=== PATIENT | female | born 1990 | race African-American/Black ===

== ENCOUNTER 2023-09-07 11:37 | Emergency (ER) | payer OTHER, SELFPAY ==
[2023-09-07 11:52] VITALS: BP 118/67; PULSE 60; RESP 16; TEMP 36.7; O2SAT 100
--- NOTE | 2023-09-07 12:04 | ED.SKABFB ---
HPI - Skin/Abscess/Foreign Bdy General Chief complaint: Skin/Abscess/Foreign Body Stated complaint: Bump On Buttocks Time Seen by Provider: 09/07/23 12:03 Source: patient and RN notes reviewed Mode of arrival: ambulatory Limitations: dementia History of Present Illness HPI narrative: 33-year-old female presents concern for a bump on her right buttock it has been there for 3 weeks. Reports up until 2 days ago was not painful. Reports 2 days ago became painful and was draining purulent drainage in the beginning, it was now draining pain drainage. She denies fever, aches, chills, sweats. MD complaint: abscess/boil and other (Redness) Related Data Home Medications Medication Instructions Recorded Confirmed drospirenone (contraceptive) 4 mg 1 tablet PO DAILY 09/07/23 09/07/23 (28) tablet (Slynd) Allergies Allergy/AdvReac Type Severity Reaction Status Date / Time No Known Allergies Allergy Verified 09/07/23 11:56 Review of Systems Review of Systems: CONSTITUTIONAL: Denies malaise, chills, sweats, or fever. EYES: Denies redness, or discharge. ENT: Denies rhinorrhea, congestion, swollen lips, swollen tongue CARDIOVASCULAR: Denies chest pain, palpitations, or edema. RESPIRATORY: Denies cough or dyspnea. GASTROINTESTINAL: Denies abdominal pain, nausea, vomiting SKIN: Reports painful bump on the right buttock that is draining. Denies vesicles, bullae, numbness, pain beyond proportion MUSCULOSKELETAL: Denies joint pain or myalgia. NEUROLOGIC: Denies headache. All systems reviewed & are unremarkable except as noted in HPI and below PMFSH Comments At time of signature, agree with nursing past medical, surgical, social and family history. There is no relevant family history pertinent to the presenting complaint Exam Narrative: GENERAL: Well-appearing, well-nourished, and in no acute distress. HEAD: Normocephalic, atraumatic. EYES: PERRLA, conjunctivae clear ENT: Mucous membranes moist. NECK: Supple. No lymphadenopathy CHEST: Clear to auscultation. No respiratory distress. HEART: Regular rate and rhythm. SKIN: Warm, dry. 3cm Flat area of erythema, induration, tenderness, noted to the inner right buttock with serosanguineous drainage noted. No vesicles, bullae, necrosis, ecchymosis, crepitus noted. NEURO: Alert and oriented x3. PSYCH: Normal mood and affect Course Course Emergency Course: Patient is aware of diagnosis, understands and agrees to treatment plan. Anticipatory guidance given. Patient agrees to follow-up as directed and is aware of reasons to seek care at the emergency department. Portions of this record may have been created with voice recognition software Level of Care: Express Care Visit Vital Signs Vital signs: Vital Signs Temperature 98.1 F 09/07/23 11:52 Pulse Rate 60 09/07/23 11:52 Respiratory Rate 16 09/07/23 11:52 Blood Pressure 118/67 09/07/23 11:52 Pulse Oximetry 100 09/07/23 11:52 Oxygen Delivery Room Air 09/07/23 11:52 Temperature 98.1 F 09/07/23 11:52 Pulse Rate 60 09/07/23 11:52 Respiratory Rate 16 09/07/23 11:52 Blood Pressure 118/67 09/07/23 11:52 Pulse Oximetry 100 09/07/23 11:52 Oxygen Delivery Room Air 09/07/23 11:52 Reviewed. MDM - Skin/Abscess/Foreign Bdy MDM Narrative Medical decision making narrative: Does not appear at this time to be erythema multiforme, bullous, SJS, TEN; no evidence at this time to suggest RMSF, NSTI, endocarditis or Lyme disease; patient looks well, nontoxic and is tolerating oral intake; no neurologic signs or symptoms; no headache, photophobia or neck pain; afebrile. Patient does not have history of of penetrating trauma, laceration, blunt trauma, recent surgery, immunosuppression, malignancy, obesity, alcoholism, corticosteroid use. Discussed the importance of follow-up, patient agrees; question, cellulitis versus necrotizing soft tissue infection versus abscess. Critical Care Time Cr
== END 2023-09-07 12:18 | disposition home or self-care (01) ==
PROVIDERS: Emergency Provider Nurse Practitioner; PCP Hospitalist
DX: L02.31 Cutaneous abscess of buttock (principal); Z79.899 Other long term (current) drug therapy
CPT/HCPCS: 99203; G0463